=== PATIENT | female | born 1985 | race Caucasian/White ===

== ENCOUNTER 2023-10-31 14:42 | Emergency (ER) | payer MEDICAID, SELFPAY ==
--- NOTE | 2023-10-31 14:45 | DI.RAD_ITS ---
Exam(s) XR KNEE RT 3V AP,LAT,MINDY EXAM: XR KNEE RT 3V AP,LAT,MINDY CLINICAL HISTORY: knee injury. TECHNIQUE: 2D digital imaging was performed of the right knee. Three views obtained. AP, lateral an d PA tunnel views were obtained. COMPARISON: No exams were available for comparison FINDINGS: BONES: No acute fracture is present. No bony destructive lesion is seen. JOINTS: The knee is normally aligned. No joint effusion is seen. SOFT TISSUE: Normal. IMPRESSION: Unremarkable radiographs of the right knee. DATA REPOSITORY: RADIATION DOSE DELIVERED:
[2023-10-31 14:46] VITALS: BP 149/99; PULSE 76; TEMP 36.1; O2SAT 100
--- NOTE | 2023-10-31 14:58 | W.ED.GENAD ---
HPI General Stated Complaint: Orthopedic JACKY: 3 Date/Time Provider Initiated Documentation: 10/31/23 14:57. Limitations to Documentation: no limitations. Information obtained by: patient. HPI Narrative: 38-year-old female without significant past medical history presents for evaluation of acute onset right knee pain. Patient was skiing just prior to arrival and she fell while skiing. She reports that she had immediate onset of right knee pain. [place] a popping sound. Has not been able to bear weight since that time. Denies any swelling, open wounds. Has not taken any medication prior to arrival. Pain is severe, constant, worse with standing and range of motion Related Data Home Medications Medication Instructions Recorded Confirmed Unknown [No Known Home Meds] 10/31/23 10/31/23 Allergies Allergy/AdvReac Type Severity Reaction Status Date / Time No Known Allergies Allergy Unverified 10/31/23 14:55 PFSH All Active Problems Right knee injury (Acute) Social History Smoking/Tobacco Use Status: Never Smoking risk assessment performed?: Yes Alcohol Intake: never Drug use: Never Substance use type: does not use Housing: house Exam Narrative Exam Narrative: Review of Systems: All systems reviewed & are unremarkable except as noted in HPI and below Well-developed, no acute distress NACT PERRL, normal conjunctiva RRR Unlabored respiratory effort Nondistended abdomen Right knee with minimal effusion, no obvious deformity or instability. Tenderness with palpation and extension. Quadriceps and patella tendon is intact No rashes or lesions. no focal neurologic deficits Appropriate mood and affect Course Vital Signs Vital signs: Vital Signs Temperature 36.1 C L 10/31/23 14:46 Pulse 76 10/31/23 14:46 Blood Pressure 149/99 H 10/31/23 14:46 Pulse Oximetry 100 10/31/23 14:46 Temperature 36.1 C L 10/31/23 14:46 Temperature Source Temporal Artery Scan 10/31/23 14:46 Pulse 76 10/31/23 14:46 Respiratory Effort Normal 10/31/23 14:55 Blood Pressure 149/99 H 10/31/23 14:46 Blood Pressure Position Sitting 10/31/23 14:46 Pulse Oximetry 100 10/31/23 14:46 Oxygen Delivery Method Room Air 10/31/23 14:46 Oxygen Flow Rate 0 10/31/23 14:46 Medical Decision Making Emergent evaluation of acute onset right knee pain. Occurred while skiing. Initial differential includes fracture, doubt dislocation. Also consider ligamentous injury, traumatic effusion. X-ray imaging was obtained, this did not demonstrate any acute bony process. I have high suspicion for internal derangement and ligamentous injury. The patient was placed in a knee immobilizer. Given crutches and advised weightbearing as tolerated. A referral was placed for an MRI and outpatient orthopedic follow-up. Recommended Motrin and Tylenol. Return precautions advised. Medical Records Medical records reviewed: Yes I reviewed the patient's medical records. Quality:[facility] Health Related Social Needs: No Data to Display Discharge Plan Disposition Patient Disposition: Home Condition: Stable Discharge Details Clinical Impression: Right knee injury Primary Care Provider: Unknown,Unknown ED Provider: Herve Moreland Home Meds and New Rx's Prescriptions: No Action No Known Home Meds Discharge Instructions Instructions: Knee Immobilizer (ED) Additional Instructions: Continue Motrin and Tylenol. Wear knee brace and use crutches to ambulate. Weightbearing as tolerated. At home when resting, keep your leg elevated and ice to help with swelling and pain. An outpatient MRI has been ordered and a referral has been sent to orthopedic surgery. Referrals: Lobo Kendall MD [ [facility] STAFF PHYSICIAN] - Discharge Data Discharge Date/Time-TO BE ENTERED AT DEPARTURE: 10/31/23 15:39
[2023-10-31] MEDS: Ketorolac 10 MG TAB PO (15:00)
--- NOTE | 2023-10-31 15:23 | DI.VRAD_ITS ---
PROCEDURE INFORMATION: Exam: XR Right Knee Exam date and time: 10/31/2023 3:14 PM Age: 38 years old Clinical indication: Injury or trauma; Fall; Other: Fell skiing TECHNIQUE: Imaging protocol: Radiologic exam of the right knee. Views: 3 views. COMPARISON: No relevant prior studies available. FINDINGS: Bones/joints: Normal. Soft tissues: Normal. IMPRESSION: No acute fracture or dislocation. Dictated and Authenticated by: Kit Miranda MD. Ordering:DANNY Gerard MD
--- OUTSIDE RECORDS SUMMARY | 2023-10-31 15:50 | XMS_ITS | Continuity of Care Document ---
Author Name Unknown Organization [facility] Ambulatory Clinics Address [address] [place] [address] Care Team Providers Care Mechanical Intern Name Role Phone Martin Richardson DO Primary Care Physician Encounter [facility] [id number] Date(s): 10/12/23 - 10/12/23 [facility] Ambulatory Clinics [address] [address] Encounter Diagnosis ADD (attention deficit disorder)(Discharge Diagnosis) - 10/12/23 Persons encountering health services in other specified circumstances(Final) - Other specified behavioral and emotional disorders with onset usually occurring in childhood and adolescence(Final) - Alcohol use, unspecified, uncomplicated(Final) - Other longterm (current) drug therapy(Final) - Discharge Disposition: Home or Self Care Attending Physician: Martin Richardson DO Allergies, Adverse Reactions, Alerts Substance Reaction Severity Status Seasonal Rhinitis Mild Active Functional Status 10/12/23 Other exposure to Infectious Disease Non e Immunizations Given and Recorded Vaccine Date Status Refusal Reason influenza, unspecified formulation 10/16/15 Record ed Td(adult) unspecified formulation 04/17/14 Recorde d Medications Adderall 10 mg oral tablet 10 mg 1 tab, Oral, Daily, in the PM, # 30 tab, 0 Refill(s), Pharmacy: [facility] #[id number], 73.5, kg, 10/12/23 13:35:00 EST, Weight Dosing Start Date: 10/12/23 Status: Ordered Adderall XR 30 mg oral capsule, extended release 30 mg 1 cap, Oral, every morning, # 30 cap, 0 Refill(s), Pharmacy: [facility] #[id number], 73.5, kg, 10/12/23 13:35:00 EST, Weight Dosing Start Date: 10/12/23 Status: Ordered Problem List Condition Confirmation Course Effective Dates Status Health St atus Informant ADD (attention deficit disorder) Confirmed Active Depression Confirmed Active Procedures Procedure Date Related Diagnosis Body Site Status Injection of knee joint 1 12/2018 Completed History of knee surgery 2004 C ompleted 1synvisc Vital Signs Most recent to oldest [Reference Range]: 1 Apical Heart Rate [60-100 bpm] 72 bpm (10/12/23 1:29 PM) Blood Pressure [90-140/60-90 mmHg] 120/8 4mmHg (10/12/23 1:29 PM) Mean Arterial Pressure, Cuff [70-110 mmH g] 96 mmHg (10/12/23 1:29 PM) Weight 73.5 kg (10/12/23 1:29 PM) Weight Measured (lbs) 162.04 lb (10/12/23 1:29 PM) Weight Dosing 73.500 kg (10/12/23 1:29 PM) Social History Social History Type Response Tobacco Never tobacco user T obacco Use:. Sex Hospital Discharge Instructions Follow Up Care 07/12/2023 10:35:16 With:Martin Richardson DO Address: [address] [place] [phone] When:1 Year Physician Outpatient Note * Martin Richardson DO: PERFORM Event Display: Office Clinic Note Physician Authored Date: [id number] MARLENY CARDENAS :1985 Age:38 years Sex:Female Visit Date:10/12/2023 Primary Care Physician: Martin Richardson DO Chief Complaint here today for a med follow up History of Present Illness Patient is a 38-year-old female who comes in today to establish care.?? She says she feels well. ??She has no specific concerns.?? She would like a refill on her Adderall. ??She is been taking it forwell over 15 years??with good effect.?? She recently moved to the [facility] from??[place].?? 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 She says that her appetite and sleep are good.?? Review of Systems See HPI otherwise negative. Physical Exam Vitals & Measurements HR:??72??(Apical)?? BP:??120/84?? SpO2:??99%?? WT:??73.5??kg?? General: Alert and oriented, well nourished,?No??acute distress Lungs: Clear to auscultation and percussion,?Non-labored?? respiration Heart:?Normal? rate,?Regular??rhythm,?No??murmur,?No??gallop,?No??edema Abdomen: Soft, non-tender, non-distended,?Normal? bowel sounds,?No??masses Musculoskeletal:?Normal? range of motion and strength,?No??tenderness,?No??swelling Psychiatric: Cooperative, appropriate mood and affect Assessment/Plan 1.??ADD (attention deficit disorder)??F98.8 Symptoms are well-controlled. ??Will continue current regimen. Orders: Adderall XR 30 mg oral capsule, extended release, 30 mg 1 cap, Oral, every morning, # 30 cap, 0 Refill(s), [facility]acy: [id number], 73.5, kg, 10/12/23 13:35:00 EST, Weight Dosing Adderall 10 mg oral tablet, 10 mg 1 tab, Oral, Daily, in the PM, # 30 tab, 0 Refill(s), Pharmacy: [facility] #[id number], 73.5, kg, 10/12/23 13:35:00 EST, Weight Dosing Follow Up Instructions With When Contact Information Martin Richardson DO Within 1 Year [address] [place] [address] Additional Instructions: Problem List/Past Medical History Ongoing ADD (attention deficit disorder) Depression Historical Procedure/Surgical History ???Injection of knee joint (12/2018)???History of knee surgery (2004) Medications Adderall 10 mg oral tablet, 10 mg= 1 tab, Oral, Daily Adderall XR 30 mg oral capsule, extended release, 30 mg= 1 cap, Oral, every morning Allergies Seasonal??(Rhinitis) Social History Alcohol Current, Beer, Daily Electronic Cigarette/Vaping Electronic Cigarette Use: Never. Substance Use Never Tobacco Never tobacco user Tobacco Use:. Family History ALS - Amyotrophic lateral sclerosis: Aunt/Uncle and Grandmother (P). Alcohol abuse: Grandfather (M). Breast cancer: Mother. CAD - Coronary artery disease: Aunt/Uncle. Heart disease: Grandmother (M). Prostate cancer: Grandfather (P). Son: History is negative Father: History is negative Family Member(s): ?? GPARENT, at age: Unknown. Cause of : Family Member(s): ?? GPARENT, at age: Unknown. Cause of : Family Member(s): ?? , at age: 58 Years. Cause of : Family Member(s): ?? , at age: 45 Years. Cause of : CAD Family Member(s): ?? GPARENT, at age: Unknown. Cause of : Immunizations Vaccine Date Status influenza, unspecified formulation 10/16/2015 Recorded Td(adult) unspecified formulation 04/17/2014 Recorded Electronically Signed on 10/12/23 02:25 PM Martin Richardson DO Patient Care team information Care Team Personnel Name: Martin Richardson DO Position: Physician Member Role: Primary Care Physician Address: Address: [address] [place] [phone]
--- NOTE | 2023-10-31 16:02 | NUR.NOTE ---
Request faxed to DI for MRI right knee, right knee trauma, xray negative, suspect internal derangement to be done this week if possible, and follow up with [facility]. Nursing Note:
== END 2023-10-31 15:39 | disposition home or self-care (01) ==
LOC: ER 15:49
PROVIDERS: Emergency Provider Emergency Medicine
DX: S82.001A Unspecified fracture of right patella, initial encounter for closed fracture (principal); W19.XXXA Unspecified fall, initial encounter; V00.321A Fall from snow-skis, initial encounter
CPT/HCPCS: 29505; 73562; 99283

== ENCOUNTER → 2023-11-05 01:11 | Outpatient (CLI) | payer MEDICAID, SELFPAY ==
--- NOTE | 2023-11-05 | DI.MRI_ITS ---
Exam(s) MR LOWER JOINT RT WO EXAM: MR LOWER JOINT RT WO CLINICAL HISTORY: Rt knee trauma,xray negative,suspected internal derangment. TECHNIQUE: Multiplanar multisequence MRI was performed. COMPARISON: CR,XR XR KNEE RT 3V AP,LAT,MINDY from 10/31/2023 FINDINGS: BONES: No fractures identified. There is marrow edema seen in the proximal tibia. There is also mar row edema seen in the lateral patellar facet with mild hyperintense signal in the overlying cartilage . JOINTS: No evidence of cartilage thinning. There is a moderate joint effusion. TENDONS: Extensor mechanism: Unremarkable. Medial retinaculum: Unremarkable. Lateral retinaculum: Unremarkable. Popliteus: Unremarkable. MUSCLES: Unremarkable. MENISCI: There is a tear of the body and posterior horn of the medial meniscus. The lateral meniscus is unremarkable. SOFT TISSUES: There is edema seen in the soft tissues around the knee particularly posterior laterall y. LIGAMENTS: Anterior Cruciate: There is a tear of the anterior cruciate ligament. Posterior Cruciate: Unremarkable. Medial Collateral:There is fluid around the medial collateral ligament which may represent a sprain. Lateral Collateral: There is fluid around the lateral collateral ligament complex suggesting a sprain . OTHER: IMPRESSION: 1. Anterior cruciate ligament tear. 2. Tear of the body and posterior horn of the medial meniscus. 3. Sprains of the medial and lateral collateral ligament complex. 4. Contusions involving the proximal tibia and patella. 5. Moderate joint effusion. DATA REPOSITORY:
== END ==
PROVIDERS: Visit Provider Emergency Medicine
DX: S83.511A Sprain of anterior cruciate ligament of right knee, initial encounter (principal); X58.XXXA Exposure to other specified factors, initial encounter
CPT/HCPCS: 73721

== ENCOUNTER 2023-12-02 10:58 | Day surgery (SDC) | payer MEDICAID, SELFPAY ==
[2023-12-02] VITALS (11 sets, daily range): BP systolic 134–160; BP diastolic 68–112; PULSE 49–65; RESP 11–17; TEMP 36.3–37; O2SAT 95–100; BMI 23.2
--- NOTE | 2023-12-02 09:54 | W.PM.DSUDISC ---
Date of service: 12/02/23 Time of Service: 15:00 Discharge Plan Disposition Patient Disposition: Home Discharge Details Attending Provider: Lobo Kendall Primary Care Provider: Martin Barron Home Meds and New Rx's Prescriptions: New naproxen 250 mg tablet 250 - 500 mg PO BID PRNQty: 40 0RF Rx Instructions: take with a meal aspirin 81 mg tablet,delayed release (DR/EC) 81 mg PO DAILY 14 Days Qty: 14 0RF oxycodone 5 mg tablet 5 - 10 mg PO Q4H MDD 30 mg PRN (Reason: moderate to severe pain) Qty: 18 0RF Continued dextroamphetamine-amphetamine 10 mg tablet 10 mg PO DAILY PRN Patient Comments: take 1 tablet by mouth daily every evening Discontinued ibuprofen 600 mg tablet 600 mg PO Q8H PRN Discharge Instructions Additional Instructions: Surgery: Right knee arthroscopy with ACL reconstruction (quadriceps allograft), medial, and lateral meniscus repairs Activity: Protected weight bearing in full extension only with crutches for 6 weeks. Use brace to protect and maintain knee straight. Brace should be removed while seated or resting. Encourage early quadriceps activation/quad sets. It is important to restore full knee extension as soon as possible. Physical therapy will be arranged to resume in about 2 weeks. Meniscus repair protocol: Seated/ non-weight bearing flexion 0-90 degrees maximum for 6 weeks. 120 degrees maximum flexion for 8 weeks. Spin/bike after 8-10 weeks. No weighted deeper flexion (squats, lunges) for 10-12 weeks. Continue WALKER ACL-Recon protocol after 12 weeks. Prescriptions: Aspirin 81 mg take 1 daily to prevent a blood clot for 14 days Naproxen 250 mg take 1-2 every 12 hours with a meal as needed for moderate pain Oxycodone 5 mg take 1-2 every 4-6 hours as needed for severe pain You may use [id number] Tylenol (acetaminophen) as needed for mild pain. These pain medications may be taken all at once or in different combinations as needed. Also, recommend Colace (docusate) as a stool softener as surgery and pain medicine cause constipation. You may try [id number] diphenhydramine (Benadryl) 25-50 mg nightly as a sleep aid Dressings: Leave dressing in place for 3 days. May then remove and leave open to air or cover incisions with Band-Aids. Leave the sticky Steri-Strips in place until they fall off or remove them after you shower. May shower after 5 days. Follow-up: 10-[address] Kendall You may take off the leg compression stockings this evening at home. You may also leave them on a few days longer if you have a history of leg swelling or edema. Let us know right away if you develop any redness, drainage, fevers, chest pain, or trouble breathing. Do not drink alcohol or drive for at least 24 hours after anesthesia. Please call the office during business hours with any questions or concerns. Stand Alone Forms: Anesthesia Discharge Inst., Anes.Nerve Block Instructions, Julio Hilton (DSU) Referrals: Lobo Kendall MD [ [facility] STAFF PHYSICIAN] - 12/15/23 2:15 pm Discharge Orders Discharge Orders: Discharge Order (Routine); Ordered 12/02/23 Ordered By: Lobo Kendall DS: Diagnosis Discharge Diagnosis (1) Acute medial meniscus tear of right knee: Status: Acute (2) Right ACL tear: Status: Acute (3) Acute lateral meniscus tear of right knee: Status: Acute
--- NOTE | 2023-12-02 09:55 | W.PM.OP ---
Date of service: 12/02/23 Time of Service: 13:00 Operative Note Operative Note DATE OF PROCEDURE: 12/02/23 PRE-OP DIAGNOSIS: Right knee: 1. ACL rupture 2. Medial meniscus tear 3. Lateral meniscus tear PROCEDURE: Right knee: 1. ACL reconstruction, CPT #56305: [Quadriceps allograft] 2. Medial & lateral meniscus repairs, CPT #08654 SURGEON: Lobo Kendall ALLERGY AND IMMUNOLOGY SPECIALIST: Kleber Encarnacion ANESTHESIA TYPE: Local By Surgeon, General LMA/ETT and Primary Nerve Block Refer to Anesthesia Record ESTIMATED BLOOD LOSS: 5 TOURNIQUET TIME: 0 COMPLICATIONS: None Patient was transported to: PACU Patient's condition: stable Implants: Arthrex ACL TightRope II RT and ABS with 8x12 mm cortical button QuadLink pre-sutured quadriceps allograft: 10x68 mm Indications: Please see complete medical record for details. Findings: Exam under anesthesia: Full range of motion, grossly positive Paloma exam, stable varus and valgus stress Arthroscopic findings: Obvious full-thickness ACL rupture from proximal to mid substance with remnant split and partially flipped anteriorly. Empty wall sign. Intact PCL. Small partially healed about 3 x 5 mm distal medial femoral condyle cartilage lesion. 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 Remainder cartilage largely intact. Peripheral/capsular largely vertical posterior horn into posterior horn body junction medial meniscus tear with otherwise good meniscus tissue. Far posterior horn peripheral vertical small lateral meniscus tear. Procedure Description: In the operating room, general anesthesia was induced. The patient was positioned supine on the operating room table. All bony prominences were well-padded. Preoperative antibiotics were administered. The knee was prepped and draped in the usual sterile fashion. The correct patient, procedure, and side of the procedure were all verified prior to incision. Exam under anesthesia was performed. Local anesthetic containing epinephrine was infiltrated about the planned anteromedial, anterolateral, lateral distal femoral, and pretibial surgery sites. The standard high and tight anterolateral and anteromedial portals were established and a complete diagnostic arthroscopy was performed with relevant findings detailed above. In the intercondylar area, the ACL remnant was removed leaving enough footprint on the femur and tibia to localize anatomic socket placement. A small notchplasty was performed to allow proper visualization of the back wall. The medial meniscus was probed and unstable from the posterior horn into the medial compartment. The root was intact and the tear stopped at about the junction with the meniscal body. The posterior aspect of the medial compartment was quite difficult to access, likely relating to some narrowing, but the displaced meniscus tear tissue appeared good quality. The peripheral capsular portion could not be really visualized. The meniscus rasp was used into this zone of injury to repair the meniscus and capsule for repair. Working through the anterior lateral portal, the half pipe was used to direct and Arthrex fiber stitch repair device localized into the center of the posterior horn as best possible, again with limited visualization, and deployed over the superior leaflet and then inferior leaflet for a vertical mattress configuration. The device deployed nicely, was tensioned with the meniscus reduced, and probe confirmed excellent posterior horn meniscus stability. A second device was used similarly closer to the meniscal body junction to secure the remainder of the tear. The meniscus was nicely reduced and probe confirmed stable. The lateral meniscus was then inspected in the [id number] position. There was a vertical peripheral tear at the posterior horn near the root. Root was intact. This tear was easily accessed, and prepared with the meniscal rasp, and repaired well using the knee scorpion to place to circumferential stitches around the medial and lateral extents of the tear, which were secured with SMC arthroscopic knots directed inferiorly and peripherally. Tear was nicely compressed and stable on probing. A passport cannula was inserted in both the anteromedial and anterolateral portals. Intercondylar area confirmed to be ready for ACL reconstruction. Anatomic femoral origin marked with a curette. The graft was measured and prepared on the back table. The TightRope II BTB and TightRope II ABS adjustable-loop cortical suspensory fixation implants were loaded on QuadLink pre-sutured quadriceps allograft. The femoral and tibial ends each measured 10 mm. The graft was marked at 20 mm from each end. On the ABS side, the tensioning sutures were marked and a shuttle suture was added. The graft was manually tensioned and the construct did not demonstrate any elongation. The graft was then compressed in a graft tube and covered with vancomycin soaked sponges. The femoral guide was then placed through the anterolateral portal carefully targeting the appropriate anatomic ACL origin. The outer 9 mm diameter of the guide was positioned anatomically with appropriate space between the proximal and posterior articular margins. On the lateral thigh, drill guide position and angle adjusted to about 60 degree angle to the longitudinal axis of the femur in the coronal plane and 20 degree angle to the trans-epicondylar axis in the axial plane to create the most optimal femoral socket. Knife and snap were used to open the skin and IT band and placed the drill guide on bone while maintaining appropriate position on the lateral wall. The tunnel length was noted to be used for marking and passing the femoral button. The flip cutter was then drilled to the appropriate location. The drill guide malleted 7 mm into the cortex. The remainder of the targeting guide removed. The FlipCutter was deployed to 10 mm and retrograde reaming done to a depth of 35 mm. Bony debris was removed with the shaver. The flip cutter was then closed, withdrawn, and a FiberStick used to pass a FiberLink shuttle stitch, which was withdrawn out the anterolateral portal. The tibial guide was then used to target the anatomic ACL insertion through the anteromedial portal. The drill angle adjusted to 57.5 degrees and a pretibial incision made. The drill guide was placed on bone, tunnel length noted, and the flip cutter drilled to the appropriate location. The drill guide malleted 7 mm into the cortex. The remainder of the targeting guide removed. The FlipCutter was deployed to 10mm and retrograde reaming done to a depth of 30 mm. Bony debris was removed with the shaver. The flip cutter was then closed, withdrawn, and a FiberStick used to pass a #2 FiberWire shuttle stitch, which was withdrawn out the anteromedial portal. The mechanical shaver was used to remove bone debris as well as chamfer and remove soft tissue from the edges of the sockets. The femoral shuttle sutures were withdrawn out the anterior medial portal. The PassPort was removed. This portal dilated to accommodate the graft size. The graft was brought over to the knee and the femoral sutures shuttled out the lateral thigh and advanced until the button was near the far cortex. Confirmed under arthroscopic visualization with the knee slightly hyperflexed, and the button was then passed and flipped on the far cortex. Counter traction was then maintained on the tibial side of the graft while it was carefully advanced into the knee and then about 15 mm into the femoral socket. The tibial sutures were then shuttled through the tibial tunnel and passing stitch removed while carefully noting the tensioning stitches. The graft was then dunked about 15 mm into the tibial socket. An 8x12 mm ABS button was then loaded to the ABS loop and tension sutures used to bring the cortical button down to bone. The graft was advanced to about 20mm into each socket and then provisionally tensioned on both the femoral and tibial sides. The knee was then cycled 22 times, tensioning rechecked, and final tightening done with the knee in full extension with a moderate reverse Paloma maintained. The graft position and tension were appropriate. There was no impingement in full extension. Paloma exam was rockstable. Femoral passing sutures were removed. Backup knots were then tied on both sides and suture tails cut. The knee and all portals were copiously irrigated and then knee drained of arthroscopic fluid. 3-0 Monocryl was used to close the portals and small incisions in a buried interrupted fashion. Steri-Strips, Xeroform, 4 x 4 gauze, and sterile soft roll was applied. The extremity was wrapped gently with an Gustavo bandage. A soft knee immobilizer placed. The patient awoke from anesthesia without complication and was transferred to the recovery room in a stable condition.
--- NOTE | 2023-12-02 11:46 | W.ANESPRE ---
General Info Date of Service Date Performed: 12/02/23 Height: 5 ft 10 in Weight: 73.4 kg Body Mass Index (BMI): 23.2 Surgical Procedure: Operation Date: 12/02/23 12:40 Proposed Procedure Side Surgeon p Knee ACL Reconstruction, Medial Meniscus Repair Right Lobo Kendall MD Meds Allergies and Home Medications Allergies Allergy/AdvReac Type Severity Reaction Status Date / Time No Known Allergies Allergy Unverified 12/02/23 11:12 Home Medication Medication Instructions Recorded ibuprofen 600 mg tablet 600 mg PO Q8H PRN 11/09/23 dextroamphetamine-amphetamine 10 10 mg PO DAILY PRN 11/30/23 mg tablet Current Visit Medications: Current Medications Generic Name Dose Route Start Last Admin Trade Name Freq PRN Reason Stop Dose Admin Ringer's Solution 1,000 mls @ 30 mls/hr 12/02/23 06:00 IV 12/31/23 23:59 INFUSION VOLODYMYR Cefazolin Sodium/Dextrose 2 gm in 50 mls @ 100 mls/hr 12/02/23 06:00 Ancef Duplex IVPB 12/31/23 23:59 PREOP VOLODYMYR IV Miscellaneous Supplies 1 each 12/02/23 06:00 Iv Access IV 12/31/23 23:59 DIRECTED VOLODYMYR Oxycodone HCl 0 mg 12/02/23 09:54 Oxycodone 5 Mg Tab PO 01/01/24 09:53 Q3H PRN PRN Pain Sodium Chloride 0 ml 12/02/23 06:00 Normal Saline Flush 10 Ml Syr IV 12/31/23 23:59 PRN PRN Sodium Chloride 0 ml 12/02/23 06:00 Normal Saline 10 Ml Vial IJ 12/31/23 23:59 DIRECTED PRN Sterile Water 0 ml 12/02/23 06:00 Water,Injection,Sterile 10 Ml Vial IJ 12/31/23 23:59 DIRECTED PRN PFSH Active Problems Active Problems: Problem Status Onset Code Acute medial meniscus tear of right knee S83.241A Right ACL tear 10/31/23 S83.511A Medical History Medical History Comments:: pt. reports feeling very tired after last surgery Surgical History Surgical History History of knee surgery (L) ACL repair Tobacco Smoking/Tobacco Use Status: Never Alcohol Alcohol Intake: never Substance Use Substance use: Never Substance use type: does not use Details: CBD- topical cream for R knee Vital Signs and Lab Results Vital Signs Most Recent Vital Signs in EMR: Most Recent Vital Signs Temp Pulse Resp BP Pulse Ox 36.6 C 56 L 14 134/85 99 12/02/23 11:16 12/02/23 11:16 12/02/23 11:16 12/02/23 11:16 12/02/23 11:16 Point of Care Results Point of Care Results: POC- Test(urine) Negative 12/02/23 11:38 Lab Results Blood Type / Crossmatch: No Data to Display Complete Blood Count: No Data to Display Complete Metabolic Panel: No Data to Display Liver Function Panel: No Data to Display Coagulation Panel: No Data to Display Cardiac Panel: No Data to Display Arterial Blood Gas: No Data to Display Venous Blood Gas: No Data to Display Pancreas Panel: No Data to Display Thyroid Panel: No Data to Display Infectious Disease: No Data to Display Blood Cultures: No Data to Display Toxicology Panel: No Data to Display Panel: No Data to Display Anesthesia Assessment and Plan Anesthesia History Personal History: No History of Anesthesia Complications Family History: No Family History of Anesthesia Complications Exercise Tolerance Exercise Tolerance: Metabolic Equivalents>4 Pertinent Negatives Pertinent Negatives: No Symptoms of GERD, No Major Cardiovascular Symptoms or Complaints and No Major Pulmonary Symptoms or Complaints Cardiac & Pulmonary Exam Cardiac Exam: Normal S1/S2 Heart Sounds Pulmonary Exam: Clear Bilateral Breath Sounds Implantable Cardiac Device Does patient have a Pacemaker or an ICD?: No Airway Exam Known Difficult Airway: No Mallampati Class: 2 Mouth Opening: Normal (> 3cm) Thyromental Distance: Greater than 3 cm Neck Range of Motion: Full ROM Neck Circumference: Normal Teeth Condition: Normal Dentition ASA Classification ASA Score: ASA 1 Emergency Case?: No NPO Status NPO Status: NPO Clears >2 hours, Solids >8 hours Status Status: Negative HCG Anesthesia Plan Resuscitation Status: Full Code Anesthesia Technique: General Anesthesia Airway Planned: Endotracheal Tube Pain Management: Surgeon and patient request nerve block Monitors Used: Standard Monitors
[2023-12-02] MEDS: Lactated Ringers 1,000 ML 30 ML IV (11:50)
[2023-12-02] MEDS: ceFAZolin 2 GM/50 ML BAG IVPB (12:59)
[2023-12-02] MEDS: Normal Saline 100 ML (13:09)
[2023-12-02] MEDS: Tranexamic Acid 1,000 MG/10 ML VIAL 1000 MG (13:09)
[2023-12-02] MEDS: EPINEPHrine 10 MG/10 ML ML ×2 (13:33→15:00)
[2023-12-02] MEDS: Bupivacaine 0.25% Pres-Free 30 ML VIAL (13:33)
--- NOTE | 2023-12-02 16:02 | W.ANESNERVE ---
Nerve Block Single Injection Procedure Date and Time Date Performed: 12/02/23 Procedure Start: 12:30 Location Where Procedure Performed Procedure Location: Day Surgery Unit Reason Performed: Postoperative Analgesia Requesting Provider: Lobo Kendall Timeout Performed Timeout Performed: Yes Monitoring Used ECG, Blood Pressure, SpO2 and See EMR for corresponding vital signs Sterility Sterility: Hand Hygiene, Surgical Cap, Surgical Mask, Sterile Gloves and Chlorhexidine Sedation Given During Procedure Sedation Given (Indicate Dose Given): Versed IV Dose:: 2mg Patient Mental Status Patient Mental Status: Awake Nerve Block 1st Nerve Block: Laterality: Right Block Type: Adductor Canal Ultrasound Image Saved?: Yes Needle / Catheter Used: 100mm SonoPlex II Local Anesthetic Bolus (Indicate Dose Given): Lidocaine used for local infiltration of skin, Injected in 3-5ml increments after negative blood aspiration, Bupivacaine 0.25% Dose:: 15ml and Exparel Dose:: 10ml Additives (Indicate Dose Given): None Ultrasound: Sterile probe cover and gel used Nerve Stimulator: Not Used Paresthesia: None Procedure Tolerated: No Complications and Patient tolerated well Procedure Outcome: Successful Performed By: Pascual Diallo
[2023-12-02] MEDS: fentaNYL 100 MCG/2 ML VIAL IVP ×2 (16:18→16:26)
--- NOTE | 2023-12-02 16:35 | W.ANESPOSTOP ---
Postoperative Evaluation Date, Time and Location Date Performed: 12/02/23 Time Performed: 16:35 Patient Location: PACU Vital Signs Most Recent Imported Vital Signs: Most Recent Vital Signs Temp Pulse Resp BP Pulse Ox 36.6 C 65 11 L 139/112 H 98 12/02/23 16:24 12/02/23 16:24 12/02/23 16:24 12/02/23 16:24 12/02/23 16:24 Pain Score Most Recent Pain Score: Most Recent Pain Score Pain Level 4 12/02/23 16:35 Assessment Mental Status: Awake (Alert & Oriented to Patient Baseline) Airway and Respiratory Function: Patent airway with normal (patient baseline) respiratory exam Cardiovascular Function: Hemodynamically Stable Hydration Status: Adequately Hydrated Nausea & Vomiting: No Nausea or Vomiting Pain: Pain is tolerable per patient Peripheral Nerve Block: Patient did not receive a nerve block
== END 2023-12-02 18:25 | disposition home or self-care (01) ==
LOC: SUR 11:00
PROVIDERS: PCP Family Medicine; Visit Provider Student in an Organized Health Care Education/Training Program
PROC: (CPT 29888; principal; 2023-12-02 12:30)
DX: S83.241A Other tear of medial meniscus, current injury, right knee, initial encounter (principal); S83.511A Sprain of anterior cruciate ligament of right knee, initial encounter; S83.281A Other tear of lateral meniscus, current injury, right knee, initial encounter; X58.XXXA Exposure to other specified factors, initial encounter
CPT/HCPCS: 29888; 29883; 76942; 81025; C9290; J0665; J0690; J1100; J1171; J1885; J1920; J2001; J2250; J2405; J2704; J3010; J3370